=== PATIENT | female | born 1995 | race Caucasian/White ===

== ENCOUNTER 2019-03-11 09:47 | Inpatient (IN) | payer MEDICAID ==
[~2019-03-11] VITALS: Ht 152.4 cm; Wt 78.5 kg
[~2019-03-11 09:47] MED LIST: ACET325T33 PO; CLIN300C10 PO; IBUP-1561 PO; PREN-93 PO
[2019-03-11 10:00] VITALS: BP 123/83; PULSE 108; RESP 18
[2019-03-11 10:01] VITALS: Ht 152.4 cm; Wt 78.5 kg
--- NOTE | 2019-03-11 10:30 | TRIAGE ---
OB Triage Datetime Report Generated by CPN: 03/11/2019 10:30 Datetime: 03/11/2019 10:20 Vaginal Exam Dilatation (cms): 3.5 Effacement (%): 70 Station: -2 Exam By: marimar Vaginal Bleeding: None Cervix, Consistency: Soft Cervix, Position: Posterior Datetime: 03/11/2019 09:58 Assessment Type: Triage Maternal Assessment Level of Consciousness: Keenly Alert, Responsive DTR's/Clonus: DTRs 2+; No Clonus Headache: Denies Blurred Vision: No Respiratory Effort: Unlabored; Regular Rhythm; Equal Expansion Breath Sounds, Left: Clear and Equal Breath Sounds, Right: Clear and Equal Nausea/Vomiting: Denies RUQ Epigastric Pain: Denies Lower Extremities Edema: None Degree: None Upper Extremities Edema: None Degree: None Facial Edema: None Fall Risk Assessment History of Falling: (0) No Secondary Diagnosis: (0) No Ambulatory Aid: (0) Bedrest/Nurse Assist IV Therapy: (0) No Gait: (0) Normal/Bedrest/Immobile Mental Status: (0) Oriented to Own Ability Fall Score: 0 Fall Risk Score Definition: No Risk: No action required Datetime: 03/11/2019 09:57 Time of Arrival: 03/11/2019 09:42 EGA: 37.4 Arrived By: Ambulatory Arrived From: Home Chief Complaint: pt. here C/O UC'S Movement: Present Contractions: Irregular Rupture of Membranes: Denies Vaginal Bleeding: None Vaginal Discharge: Denies Recent Sexual Intercouse: Denies Abdominal Trauma: Not Applicable Patient Complaints: Contractions; Cramping; Back Pain Time Provider Notified: 03/11/2019 10:25 Provider Notified: SMITHA Initial Plan: SVE/EFM Datetime: 03/11/2019 09:54 Labor Evaluation Monitor Mode: External Heart Rate Monitor Mode: External US
[2019-03-11] MEDS ORDERED: OXYTOCIN 30 UNITS/LR 500 ML IV PRN ×2 (11:00→22:00)
[2019-03-11] MEDS ORDERED: OXYTOCIN 30 UNITS/LR 500 ML IV SCH ×4 (11:00→21:54)
[2019-03-11] MEDS ORDERED: MISOPROSTOL 200 MCG TAB PR PRN ×2 (11:00→22:00)
[2019-03-11] MEDS ORDERED: LIDOCAINE 1% (MPF) 30 ML INJ INJ PRN (11:00)
[2019-03-11] MEDS ORDERED: AMPICILLIN 2 GM/NS (PMX) 100 ML IV ONE (11:00)
[2019-03-11] MEDS ORDERED: BUTORPHANOL 2 MG INJ IV PRN (11:00)
[2019-03-11] MEDS ORDERED: METHYLERGONOVINE 0.2 MG INJ IM PRN ×2 (11:00→22:00)
[2019-03-11] MEDS ORDERED: CARBOPROST 250 MCG INJ IM PRN ×2 (11:00→22:00)
[2019-03-11] MEDS: LACTATED RINGER'S 1,000 ML IV SCH ×2 (11:34→19:00)
[2019-03-11] MEDS: AMPICILLIN 1 GM/NS (PMX) 50 ML IV SCH ×2 (15:59→19:00)
--- NOTE | 2019-03-11 18:38 | HP ---
Date/Time of Note Date/Time of Note DATE: 03/11/19 TIME: 18:37 OB - History Hx of Present : 1 Para: 0 Care: Good Care Ultrasounds: Normal mid trimester US Obstetrical Complications: None Medical Complications: None Past Family/Social History * Past Medical, Surgical, Family and Obstetric Histories reviewed from chart. OB Admission Exam Vital Signs Vital Signs Vital Signs Date Temp Pulse Resp B/P (MAP) Pulse Ox O2 O2 Flow FiO2 Time Delivery Rate 03/11/19 98.8 108 18 123/83 Room Air 10:00 (96) Physical Exam HEENT: WNL Heart: Rhythm Normal Lungs: Clear, Equal Abdomen: WNL Extremities: Normal Reflexes: Normal Cervical Dilatation: 1cm Effacement: 25% Station: -3 Membranes: Intact Heart Rate: 130's Accelerations: Accelerations Present Decelerations: No Decelerations Varibility: Moderate Contractions on Admission: 6-10 Minutes Apart Intensity: Moderate Last 72 hours Lab Results CBC & BMP 03/11/19 11:30 OB Assessment/Plan Reason for admission: induction of labor (fluid is 7cm) Plan: Induction THEE BONE MD Mar 11, 2019 18:38
--- NOTE | 2019-03-11 20:08 | LDN ---
Date/Time of Note Date/Time of Note DATE: 03/11/19 TIME: 20:07 Delivery Summary Placenta Delivered: Spontaneously Meconium: none Episiotomy: No Perineal laceration: 1 Anesthesia type: Local Estimated blood loss: 300 Sponge & Needle done & correct: Yes All needle counts correct: Yes Any foreign bodies felt in the: No THEE BONE MD Mar 11, 2019 20:08
[2019-03-11] MEDS ORDERED: IBUPROFEN 600 MG TAB PO ONE (20:30)
[2019-03-11 21:50] VITALS: BP 121/84; PULSE 88; RESP 18
[2019-03-11] MEDS ORDERED: WITCH HAZEL/GLYCERIN PAD PR PRN (22:00)
[2019-03-11] MEDS ORDERED: MAGNESIUM HYDROXIDE 30ML CUP PO PRN (22:00)
[2019-03-11] MEDS ORDERED: ACETAMINOPHEN 325 MG TAB PO PRN (22:00)
[2019-03-11] MEDS ORDERED: DIPHENHYDRAMINE 25 MG CAP PO PRN (22:00)
[2019-03-11] MEDS ORDERED: HYDROCODONE/APAP (5/325) TAB PO PRN (22:00)
[2019-03-11] MEDS ORDERED: BENZOCAINE 20% 56 ML SPRAY TOP PRN (22:00)
[2019-03-11] MEDS ORDERED: ZOLPIDEM 5 MG TAB PO PRN (22:00)
[2019-03-11] MEDS ORDERED: SENNA/DOCUSATE NA (8.6MG/50MG) TAB PO PRN (22:00)
[2019-03-12] VITALS: BP 122/78; PULSE 90; RESP 18
[2019-03-12] MEDS: IBUPROFEN 800 MG TAB PO SCH ×4 (00:04→17:22)
[2019-03-12] MEDS: LANOLIN HPA 1 PKT TOP PRN (00:04)
[2019-03-12 04:20] VITALS: BP 111/67; PULSE 86; RESP 18
[2019-03-12] MEDS: LACTATED RINGER'S 1,000 ML IV* SCH ×3 (05:54→21:54)
--- NOTE | 2019-03-12 07:49 | DS ---
Date/Time of Note Date/Time of Note DATE: 03/12/19 TIME: 07:48 Discharge Summary Admission/Discharge Info Admit Date/Time Mar 11, 2019 at 11:01 Discharge Date/Time Discharge Diagnosis term Patient Condition: Stable Hospital Course unremarkable Home Meds Reported Medications Vit No.124/Iron/FA ( Vitamin Tablet) 1 Each Tablet, 1 EACH PO DAILY, TAB 03/11/19 Primary Care Provider Care Physician No Primary Pending Labs Laboratory Tests Test 03/11/19 11:30 03/12/19 07:01 White Blood Count 11.1 10^3/ul (4.8-10.8) Red Blood Count 4.70 10^6/ul (4.20-5.40) Hemoglobin 13.5 g/dl (12.0-16.0) Hematocrit 41.0 % (37.0-47.0) Mean Corpuscular Volume 87.2 fl (82.0-101.0) Mean Corpuscular Hemoglobin 28.7 pg (29.0-33.0) Mean Corpuscular 32.9 g/dl (32.0-37.0) Hemoglobin Concent Red Cell Distribution Width 13.7 % (11.5-14.5) Platelet Count 354 10^3/UL (140-415) Mean Platelet Volume 10.0 fl (7.4-10.4) Immature Granulocytes % 1.000 % (0.001-0.429) Neutrophils % 66.6 % (39.0-77.0) Lymphocytes % 25.8 % (15.0-51.0) Monocytes % 5.6 % (0.0-11.0) Eosinophils % 0.5 % (0.0-7.0) Basophils % 0.5 % (0.0-2.0) Nucleated Red Blood Cells % 0.0 /100WBC (0.0-0.0) Immature Granulocytes # 0.110 10^3/ul (0.0-0.031) Neutrophils # 7.4 10^3/ul (1.6-7.5) Lymphocytes # 2.9 10^3/ul (0.8-2.9) Monocytes # 0.6 10^3/ul (0.3-0.9) Eosinophils # 0.1 10^3/ul (0.0-0.5) Basophils # 0.1 10^3/ul (0.0-0.1) Nucleated Red Blood Cells # 0.0 10^3/ul (0.0-0.0) Prothrombin Time 12.5 Sec (11.9-14.9) Prothrombin Time Ratio 1.0 INR International 0.92 Normalized Ratio Activated Partial Thromboplast 31.1 Sec (23.0-35.0) Time Rapid Plasma Reagin NONREACTIVE (NR) Lab Scanned Report REFERENCE LAB [id number] THEE BONE MD Mar 12, 2019 07:49
[2019-03-12 08:00] VITALS: BP 109/63; PULSE 85; RESP 18
[2019-03-12 17:59] VITALS: BP 112/67; PULSE 62; RESP 18
[2019-03-12 19:35] VITALS: BP 122/73; PULSE 90; RESP 18
[2019-03-13] MEDS: IBUPROFEN 800 MG TAB PO SCH ×3 (00:20→12:13)
[2019-03-13 04:10] VITALS: BP 103/58; PULSE 69; RESP 18
[2019-03-13] MEDS: LACTATED RINGER'S 1,000 ML IV* SCH (05:54)
[2019-03-13 08:00] VITALS: BP 114/75; PULSE 76; RESP 19
[2019-03-13] MEDS ORDERED: DIPHTH/TET/ACEL PERTUSS (ADULT) 0.5 ML VIAL IM* ONE (09:00)
[2019-03-13] MEDS ORDERED: VARICELLA VACCINE LIVE/PF 1,350 UNIT/0.5 ML ML SC* ONE (09:00)
[2019-03-13] MEDS ORDERED: MEASLES,MUMPS,RUBELLA VACCINE INJ SC* ONE (09:00)
[2019-03-13] MEDS: LANOLIN HPA 1 PKT TOP PRN (13:41)
--- NOTE | 2019-03-14 14:42 | DELSUM ---
Delivery Summary A-C Datetime Report Generated by CPN: 03/14/2019 14:42 DELIVERY PERSONNEL Automation Developer: Trent, Sarah MATERNAL INFORMATION Delivery Anesthesia: Local Medications in Delivery: pitocin 30 units Delivery QBL (ml): 300 Placenta Cultured: No Maternal Complications: None LABOR SUMMARY EDC: 03/28/2019 00:00 No. Babies in Womb: 1 Attempted: No Labor Anesthesia: None LABOR INFORMATION Reason for Induction: Not Applicable Onset of Labor: 03/10/2019 18:00 Complete Dilatation: 03/11/2019 19:35 Oxytocin: Augmentation Group B Beta Strep: Positive Antibiotics # of Doses: 2 Antibiotics Time of Last Dose: 03/11/2019 15:59 Steroids Given: None Reason Steroids Not Administered: Not Applicable MEMBRANES Membranes Rupture Method: Artificial Rupture of Membranes: 03/11/2019 18:25 Length of Rupture (hr): 1.55 Amniotic Fluid Color: Clear Amniotic Fluid Amount: Moderate Amniotic Fluid Odor: None STAGES OF LABOR Stage 1 hr: 25 Stage 1 min: 35 Stage 2 hr: 0 Stage 2 min: 23 Stage 3 hr: 0 Stage 3 min: 6 Total Time in Labor hr: 26 Total Time in Labor min: 4 VAGINAL DELIVERY Episiotomy: None Laceration Extension: First Degree Laceration Type: Perineal Laceration Repair: Yes Initial Vag Sponge Count: 10 Final Vag Sponge Count: 10 Initial Vag Sharps Count: 1 Final Vag Sharps Count: 2 Sponge Count Correct: Yes; Vaginal Sweep Performed Sharps Count Correct: Yes BABY A INFORMATION Infant Delivery Date/Time: 03/11/2019 19:58 Method of Delivery: Vaginal Born in Route : No : N/A Forceps: N/A Vacuum Extraction: N/A Shoulder Dystocia : N/A SHOULDER DYSTOCIA BABY A Delivery Date/Time: 03/11/2019 19:58 PRESENTATION/POSITION BABY A Presentation: Cephalic Cephalic Presentation: Vertex Breech Presentation: N/A PLACENTA INFORMATION BABY A Placenta Delivery Time : 03/11/2019 20:04 Placenta Method of Delivery: Spontaneous Placenta Status: Delivered SCORES BABY A Heart Rate 1 min: >100 bpm Resp Effort 1 min: Good Cry Reflex Irritability 1 min: Cough/Sneeze/Pulls Away Muscle Tone 1 min: Active Motion Color 1 min: Blue/Pale Resuscitation Effort 1 min: Tactile Stimulation SCORE 1 MIN: 8 Heart Rate 5 min: >100 bpm Resp Effort 5 min: Good Cry Reflex Irritability 5 min: Cough/Sneeze/Pulls Away Muscle Tone 5 min: Active Motion Color 5 min: Body [place], Extremit Blue Resuscitation Effort 5 min: Tactile Stimulation SCORE 5 MIN: 9 INFORMATION BABY A Gestational Age at Delivery: 37.4 Gestational Status: Early Term- 37- 38.6 Weeks Infant Outcome : Liveborn, with signs of life Condition : Stable Sex: Female IDENTIFICATION/MEDS BABY A ID Band Number: [id number] ID Band Location: Right Leg; Left Arm Sensor Applied: Yes Sensor Number: [id number] Sensor Location : Cord Clamp Vitamin K Given : Not Given Erythromycin Given: Not Given WEIGHT/LENGTH BABY A Infant Birthweight (gm): 2940 Weight (lb): 6 Weight (oz): 8 Infant Length (in): 18.00 Length (cm): 45.72 CORD INFORMATION BABY A No. Cord Vessels: 3 Nuchal Cord : Around Neck x1, Loose Cord Blood Taken: Yes Infant Suction: Mouth; Nose ASSESSMENT BABY A Complications: Extended Bradycardi; Multiple Late Decels; Multiple Variable Decels Physical Findings at Delivery: Within Normal Limits Infant Respirations: Appears Normal Clinical Analyst/ALS Called : No Care By: NICU RT/T HOBBS Transferred To: Remains with Mother
== END 2019-03-13 14:15 | disposition home or self-care (01) | DRG 807 ==
LOC: OBT 09:47 → L-D 09:48 → OBT 10:25 → L-D 11:01 → PP1 21:48
PROVIDERS: ADMIT Obstetrics & Gynecology; ATTEND Obstetrics & Gynecology
PROC: 10E0XZZ Delivery of Products of Conception, External Approach (ICD-10-PCS; principal; 2019-03-11)
PROC: 0HQ9XZZ Repair Perineum Skin, External Approach (ICD-10-PCS; 2019-03-11)
DX: O70.9 Perineal laceration during delivery, unspecified (principal); Z37.0 Single live birth; Z3A.37 37 weeks gestation of pregnancy
CPT/HCPCS: 85025; 85610; 85730; 86592; 86850; 86900; 86901; 90716; 99464; G0463; J0290; J0595; J2590; J7120

== ENCOUNTER 2019-03-29 15:57 | Emergency (ER) | payer MEDICAID ==
[~2019-03-29] VITALS: Ht 152.4 cm; Wt 62.4 kg
[2019-03-29 16:09] VITALS: Ht 152.4 cm; Wt 62.4 kg
--- NOTE | 2019-03-29 16:31 | ERD ---
ER Documentation Chief Complaint Chief Complaint LEFT BREAST PAIN/SWELLING/REDNESS X2 DAYS HPI 23-year-old female, status post normal spontaneous vaginal delivery 17 days ago, presents the emergency department, complaining of 2 days with left breast tenderness and erythema. The patient is currently breast-feeding. She denies fever or chills. ROS All systems reviewed and are negative except as per history of present illness. Medications Home Meds Active Scripts Acetaminophen* (Tylenol*) 325 Mg Tablet, 2 TAB PO Q6 PRN for PAIN AND OR ELEVATED TEMP, #20 TAB Prov:MO MUÑOZ MD 03/29/19 Ibuprofen* (Motrin*) 400 Mg Tab, 400 MG PO Q6H PRN for PAIN AND OR ELEVATED TEMP for 4 Days, #20 TAB Prov:MO MUÑOZ MD 03/29/19 Clindamycin Hcl* (Clindamycin Hcl*) 300 Mg Capsule, 300 MG PO TID for 10 Days, CAP Prov:MO MUÑOZ MD 03/29/19 Reported Medications Vit No.124/Iron/FA ( Vitamin Tablet) 1 Each Tablet, 1 EACH PO DAILY, TAB 03/11/19 Allergies Allergies: Coded Allergies: No Known Allergy (Unverified , 03/11/19) PMhx/Soc Medical and Surgical Hx: pt denies Medical Hx History of Surgery: No Hx Alcohol Use: No Hx Substance Use: No Hx Tobacco Use: No Smoking Status: Never smoker FmHx Family History: No diabetes, No coronary disease Physical Exam Vitals Vital Signs Date Temp Pulse Resp B/P (MAP) Pulse Ox O2 O2 Flow FiO2 Time Delivery Rate 03/29/19 97.8 85 19 103/65 98 16:09 (78) Physical Exam Const: No acute distress Head: Atraumatic Eyes: Normal Conjunctiva ENT: Normal External Ears, Nose and Mouth. Neck: Full range of motion. No meningismus. Resp: Clear to auscultation bilaterally Cardio: Regular rate and rhythm, no murmurs Breast: left breast with diffuse erythema and tenderness, no induration, no fluctuance. Contralateral breast normal Abd: Soft, non tender, non distended. Normal bowel sounds Skin: No petechiae or rashes Back: No midline or flank tenderness Ext: No cyanosis, or edema Neur: Awake and alert Psych: Normal Mood and Affect Procedures/MDM Vital signs stable.Clinical presentation and physical exam c/w left lactational mastitis. Differential diagnosis considered include hematoma, mastitis, lipoma, cyst, fibroglandular changes of the breast. Low suspicion for abscess or malignancy. During the ED course the patient remained stable, no new complaints. Results and clinical impression discussed with the patient who agrees with management. The patient is stable to be treated outpatient and will be discharged home with a Rx for Clindamycin, some side effects of prescribed medications (headache, rash, nausea, vomiting, diarrhea, bleeding, hypertension, interactions with other medications) were reviewed. Follow up with the primary care provider in the next 48h has been recommended. If symptoms persist, worsen or new symptoms develop, then patient should return to the ED immediately. Instructions explained and given directly by me to the patient with acknowledgment and demonstrated understanding. Disclaimer: Inadvertent spelling and grammatical errors are likely due to EHR/dictation software use and do not reflect on the overall quality of patient care. Also, please note that the electronic time recorded on this note does not necessarily reflect the actual time of the patient encounter. Departure Diagnosis: Primary Impression: Mastitis, left, acute Condition: Stable Additional Instructions: Muchas luis eduardo por [facility] para reyes servicio. Esperamos que en reyes visita a la craig de emergencia reyes problema medico haya sido solucionado y que se sienta mucho mejor. Para estar seguros que reyes mejoria sigue en proceso, le pedimos el favor de hacer irma everardo de seguimiento medico con reyes doctor primario en los proximos 2-4 perez. Lleve con usted estos documentos y las medicinas recetadas. Si chance sintomas empeoran, NO SE ESPERE, por favor regrese a craig de emergencia INMEDIATAMENTE. En nichole que usted no tenga un mdico de atencin primaria: Llame al mdico o clnica comunitaria de referencia que aparece abajo nato las horas de consultorio para hacer irma everardo para que le vean. CLINICAS: [facility] [phone] [id number] [facility] [phone] [address] [facility] [phone] [address] [facility] [phone] [facility] [phone] [facility]. [phone] MO LOPEZ MD Mar 29, 2019 16:31
== END 2019-03-29 16:33 | disposition home or self-care (01) ==
LOC: E/R 15:57
DX: O91.22 Nonpurulent mastitis associated with the puerperium (principal)
CPT/HCPCS: 99283